=== PATIENT | female | born 1955 | race American Indian/Alaskan Native ===

== ENCOUNTER 2019-05-19 10:16 | Outpatient (CLI) | payer OTHER ==
--- NOTE | 2019-05-19 11:12 | Mammography Report ---
DIGITAL DIAGNOSTIC MAMMOGRAM WITH CAD, -- 05/19/2019 INDICATION: Recall to evaluate asymmetry. TECHNIQUE: Digital left mammographic imaging was performed. Spot compression views were obtained. La teral and rolled CC views were also obtained.This examination was interpreted with the benefit of Com puter-aided Detection analysis. COMPARISON: 04/09/2019 and 06/09/2012 FINDINGS: Breast Density: There are scattered areas of fibroglandular density. A linear asymmetry persists on spot compression and rolled lateral views but lateral and rolled media l views are negative. No significant change when compared to the 2011 mammogram. IMPRESSION: A benign left inner summation density. No mammographic evidence of malignancy. Follow up recommendation: Routine yearly BI-RADS Category 2: Benign. A "normal" or negative report should not discourage follow up or biopsy of a clinically significant f inding. A written summary of these findings will be mailed to the patient. The patient will be entered into a mammography reporting system which will generate a reminder letter for the patient's next appointmen t at the appropriate interval. According to the [employer], yearly mammograms are recommended starting at age 40 and continuing as long as a woman is in good health. Breast MRI is recommended for women with an carlos roximately 20-25% or greater lifetime risk of breast cancer, including women with a strong family his tory of breast or ovarian cancer and women who have been treated for Hodgkin's disease. Signer Name: Brian Simms MD Signed: 05/19/2019 11:07 AM Workstation Name: [id number]
== END 2019-05-19 10:17 | disposition home or self-care (01) ==
LOC: MAMMO 10:16
PROVIDERS: ATTEND Internal Medicine
DX: R92.8 Other abnormal and inconclusive findings on diagnostic imaging of breast (principal)